=== PATIENT | female | born 1975 | race Caucasian/White ===

== ENCOUNTER 2019-12-23 11:32 | Emergency (ER) | payer OTHER, SELFPAY ==
[2019-12-23 11:41] VITALS: BP 120/76; PULSE 81; RESP 18; TEMP 36.7; O2SAT 99
--- NOTE | 2019-12-23 11:53 | ED.GENADULT ---
HPI - General Adult General Chief complaint: Skin/Abscess/Foreign Body Stated complaint: facial blisters Time Seen by Provider: 12/23/19 11:54 Source: patient Mode of arrival: ambulatory Limitations: no limitations History of Present Illness HPI narrative: 43-year-old female patient presents to the [facility] with complaints of blisters to the face and nose and scalp for the past 3 days. Patient denies any fever, chest pain or shortness of breath. Patient states that it for started off on the left corner of her mouth states there was a little crack in there and has now had some blisters with a little bit of yellow discharge. Patient states she has also had an area on the right side of her nose that has been having a little bit of yellow discharge. Patient states that she also noticed some blister areas to her scalp when she washes her hair. Related Data Home Medications Medication Instructions Recorded Confirmed levothyroxine 06/28/19 naloxone [Narcan] INTRANASAL 12/23/19 pregabalin 12/23/19 Allergies Allergy/AdvReac Type Severity Reaction Status Date / Time Sulfa (Sulfonamide Allergy Mild Rash Verified 06/28/19 12:50 Antibiotics) Review of Systems Review of Systems: Narrative: CONSTITUTIONAL: Denies fever, chills, or sweats. EYES: Denies visual changes, redness, or discharge. ENT: Denies rhinorrhea, congestion, sore throat, or otalgia. CARDIOVASCULAR: Denies chest pain, palpitations, or edema. RESPIRATORY: Denies cough or dyspnea. GASTROINTESTINAL: Denies abdominal pain, nausea, vomiting, or diarrhea. GENITOURINARY: Denies dysuria or hematuria. SKIN: Denies rash or itching. Positive blistering rash to face and scalp for the past 3 days MUSCULOSKELETAL: Denies back pain, joint pain, or myalgia. NEUROLOGIC: Denies headache, numbness, or weakness. PSYCHIATRIC: Denies anxiety or depression. PMFSH Social History Social History Gender identity (if verbalized by the patient): Female Comments At the time of my signature I agree with nursing past medical history, surgical, social, and family history. There is no relevant family history pertinent to the presenting complaint. Exam Narrative: Exam Narrative: GENERAL: Well-appearing, well-nourished, and in no acute distress. HEAD: Normocephalic, atraumatic. EYES: PERRLA and EOMI. ENT: Nares clear, no rhinorrhea or epistaxis. Mucous membranes moist. NECK: Supple. No lymphadenopathy CHEST: Clear to auscultation. No respiratory distress. HEART: Regular rate and rhythm. No murmur heard. Normal peripheral pulses. ABDOMEN: Soft, nontender, nondistended, normal active bowel sounds. EXTREMITIES: Normal range of motion. No edema. SKIN: Warm, dry, no rash. Patient appears to have a bullous-like rash noted to the left corner of the mouth as well as the right side of the nose. No active discharge at this time. Does appear to be some scaly yellowish dry. There is also some small areas noted on the scalp on exam. NEURO: No focal deficits. Alert and oriented x3. Course Vital Signs Vital signs: Vital Signs Temperature 36.7 C 12/23/19 11:41 Pulse Rate 81 12/23/19 11:41 Respiratory Rate 18 12/23/19 11:41 Blood Pressure 120/76 12/23/19 11:41 Pulse Oximetry 99 12/23/19 11:41 Temperature 36.7 C 12/23/19 11:41 Pulse Rate 81 12/23/19 11:41 Respiratory Rate 18 12/23/19 11:41 Blood Pressure 120/76 12/23/19 11:41 Pulse Oximetry 99 12/23/19 11:41 Vital signs reviewed. Medical Decision Making Differential Diagnosis Differential Diagnosis: Differential diagnosis: Contact dermatitis, poison keith, poison sumac, psoriasis, eczema, allergic reaction, drug reaction, scabies, tinea syphilis, lung disease, viral exanthema, pityriasis, erythema multiforme. Discussed with patient this does appear to be some type of impetigo or possibly a staph infection. Discussed with her that we will go ahead an
== END 2019-12-23 12:08 | disposition home or self-care (01) ==
PROVIDERS: Emergency Provider Nurse Practitioner Family; PCP Physician Assistant
DX: L01.00 Impetigo, unspecified (principal); B95.8 Unspecified staphylococcus as the cause of diseases classified elsewhere
CPT/HCPCS: 99213; G0463

== ENCOUNTER 2020-01-13 12:12 | Emergency (ER) | payer OTHER, SELFPAY ==
[2020-01-13 12:22] VITALS: BP 110/71; PULSE 78; RESP 16; TEMP 36.8; O2SAT 99
--- NOTE | 2020-01-13 12:43 | ED.GENADULT ---
HPI - General Adult General Chief complaint: Skin/Abscess/Foreign Body Stated complaint: possible infwction on foot Time Seen by Provider: 01/13/20 12:43 Source: patient and RN notes reviewed Mode of arrival: ambulatory Limitations: no limitations History of Present Illness HPI narrative: 44-year-old female presents with complaints of drainage, redness, warmth, tenderness, and swelling to RT 3rd dorsal toe for the past 4 days. Rupinder says she believes she had athletes foot and was using Lotrimin cream and then wore shoes without socks and developed a wound to RT 3rd toe. Increase redness and warmth over the past 24 hours. Neosporin without relief. Increase radiation of tenderness, redness, and swelling into RT foot. No exacerbating factors per Rupinder. Denies calf pain. Open areas with some drainage. Denies fever or chills. Denies nausea, vomiting, and abdominal pain. Tolerating po intake well. LMP, 4 mos ago, pre-menopausal. The patient reports she have not been diagnosed with COVID-19. The patient reports she is not waiting for the results of a COVID-19 lab test. The patient reports she do not have fever, chills, weakness, or fatigue. The patient reports she do not have a new or worsening cough or shortness of breath. Denies chest pain. The patient reports she do not have any rhinorrhea, congestion, sore throat, and diarrhea. Denies recent traveling. Denies concerns for COVID-19 or exposures been home with limited outdoor exposure except for essential household needs and return home. At this time, patient is not suspected of having COVID-19. Some parts of this dictation were generated by voice recognition software and may contain typographical and/or grammatical inaccuracies. Related Data Home Medications Medication Instructions Recorded Confirmed levothyroxine 01/13/20 pregabalin [Lyrica] 150 mg PO TID 01/13/20 01/13/20 Allergies Allergy/AdvReac Type Severity Reaction Status Date / Time Sulfa (Sulfonamide Allergy Mild Hives Verified 01/13/20 12:35 Antibiotics) Review of Systems Review of Systems: Narrative: CONSTITUTIONAL: Denies fever, chills, sweats. EYES: Denies visual changes, redness, discharge. ENT: Denies rhinorrhea, congestion, sore throat, otalgia. CARDIOVASCULAR: Denies chest pain, palpitations, edema. RESPIRATORY: Denies dyspnea, wheezing, cough. GASTROINTESTINAL: Denies abdominal pain, nausea, vomiting, diarrhea. GENITOURINARY: Denies dysuria, hematuria, abnormal discharge. SKIN: Complaints of drainage, redness, warmth, tenderness, and swelling to RT 3rd dorsal toe and foot. MUSCULOSKELETAL: Denies acute back pain, joint pain, or myalgia. NEUROLOGIC: Denies numbness or focal weakness. PSYCHIATRIC: Denies anxiety or depression. All systems reviewed & are unremarkable except as noted in HPI and below. [facility] Past Medical History Medical History (Updated 01/14/20 @ 00:00 by Tiana Merchant) Fibromyalgia Hypothyroidism Surgical History Surgical History (Updated 01/13/20 @ 13:01 by SERENE Shaw) History of cholecystectomy History of thyroidectomy History of tubal ligation Family History Family History (Updated 01/13/20 @ 13:02 by SERENE Shaw) Father Hypertension Mother Alive and well Social History Social History (Updated 01/13/20 @ 13:03 by SERENE Shaw) Smoking packs per day: 1 Smoking cigarettes per day: 20.0 Years smoked: 15 Smoking pack-years: 15.00 Smoking status: Current every day smoker Alcohol intake: current Substance use: never Living arrangements: with family Occupation/Education: unemployed Gender identity (if verbalized by the patient): Female Comments At time of signature, agree with nurse past medical, surgical, social, and family history. There is no relevant family history pertinent to the presenting complaint. Exam Narrative: Exam Narrative: GENERAL: This is a well-nourished
--- NOTE | 2020-01-13 13:05 | PC.NURSE ---
1303- Abx oint, and baindaid applied.
== END 2020-01-13 13:10 | disposition home or self-care (01) ==
PROVIDERS: Emergency Provider Nurse Practitioner Family; PCP Physician Assistant
DX: L03.031 Cellulitis of right toe (principal); F17.210 Nicotine dependence, cigarettes, uncomplicated
CPT/HCPCS: 87070; 87147; 87186; 87205; 99213; G0463

== ENCOUNTER 2020-02-24 16:25 | Outpatient (CLI) | payer OTHER, SELFPAY ==
[2020-02-24 17:52] LABS: Basophils Absolute Auto 0.1 K/mm3 (0.0-0.1); Basophils Percent Auto 0.9 % (0.2-1.2); Eosinophils Absolute Auto 0.4 K/mm3 (0-0.3); Eosinophils Percent Auto 6.6 % (0-4.4); Hematocrit 39.5 % (37.0-47.0); Hemoglobin 12.5 g/dL (12.0-15.0); Immature Granulocyte Absolute 0.01 K/mm3 (0.00-0.031); Immature Granulocyte Percent A 0.2 % (0-0.5); Lymphocytes Absolute Auto 2.02 K/mm3 (0.9-3.2); Lymphocytes Percent Auto 38.3 % (18.3-44.2); Mean Corpuscular HGB Conc 31.6 g/dl (32-36); Mean Corpuscular Hemoglobin 28.9 pg (26-34); Mean Corpuscular Volume 91.4 fl (80-100); Mean Platelet Volume 10.1 fl (7.4-10.4); Monocytes Absolute Auto 0.4 K/mm3 (0.1-0.6); Monocytes Percent Auto 7.8 % (2.6-8.5); Neutrophils Absolute Auto 2.4 K/mm3 (1.3-6.7); Neutrophils Percent Auto 46.2 % (45.5-73.1); Platelet Count Result 293 k/mm3 (150-375); Red Blood Count 4.32 M/mm3 (4.2-5.4); Red Cell Distribution Width 13.9 % (11.5-14.5); White Blood Count 5.3 K/mm3 (4.5-10.0)
[2020-02-24 18:04] LABS: Alanine Aminotransferase 30 U/L (4-35); Albumin Level 4.1 g/dL (3.5-5.1); Alkaline Phosphatase 97 U/L (38-126); Anion Gap 5 mmol/L (8-16); Aspartate Amino Transferase 37 U/L (14-36); Bilirubin,Total 0.4 mg/dL (0.2-1.3); Blood Urea Nitrogen 11 mg/dL (7-17); Calcium 8.9 mg/dL (8.4-10.2); Carbon Dioxide 33 mmol/L (22-30); Chloride 100 mmol/L (98-107); Estimated Glomerular Filt Rate > 60; Glucose 98 mg/dL (65-105); Potassium 4.1 mmol/L (3.4-5.0); Sodium 138 mmol/L (137-145)
[2020-02-24 18:13] LABS: NT Pro B Type Natriuretic Pept 45 PG/ML (5-100)
[2020-02-24 18:35] LABS: Thyroid Stimulating Hormone 0.176 uIU/mL (0.465-4.680)
== END 2020-02-24 16:26 | disposition home or self-care (01) ==
LOC: ANHLAB 16:28
PROVIDERS: PCP Physician Assistant; Visit Provider Physician Assistant
DX: R60.0 Localized edema (principal)
CPT/HCPCS: 36415; 80053; 83880; 84443; 85025

== ENCOUNTER 2020-08-14 13:08 | Emergency (ER) | payer OTHER, SELFPAY ==
--- NOTE | ~2020-08-14 | XR_ITS ---
XR chest 2V DATE: 08/14/2020 14:34 INDICATION: Generalized swelling. Rash. Back pain. TECHNIQUE: PA and lateral views COMPARISON: 06/28/2019 2 view chest FINDINGS: Normal heart size. No hilar or mediastinal enlargement. No pulmonary infiltrate or consolidation, pleural effusion or pulmonary vascular congestion or pneumo thorax. Included skeletal structures are unremarkable. Status post cholecystectomy. IMPRESSION: No active cardiopulmonary disease Reviewed, dictated and finalized at location [facility]. [facility]
[2020-08-14 13:41] VITALS: BP 118/63; PULSE 111; RESP 24; TEMP 36.8; O2SAT 100
--- NOTE | 2020-08-14 13:57 | ECG_ITS ---
Measurements Intervals [place] Rate: 77 P: 26 PA: 170 QRS: 7 QRSD: 93 T: -2 QT: 359 QTc: 407 Interpretive Statements SINUS RHYTHM EARLY PRECORDIAL R/S TRANSITION VOLTAGE CRITERIA FOR LVH BORDERLINE ST-T WAVE ABNORMALITY- ANT/INF LEADS BASELINE ARTIFACT- I, II, AVR, AVL, AVF BORDERLINE ECG Electronically Signed On 08-14-2020 16:49:47 NURSING TECHN by Jimmy Stevenson D.O.
[2020-08-14 14:15] LABS: Basophils Absolute Auto 0.1 K/mm3 (0.0-0.1); Basophils Percent Auto 0.7 % (0.2-1.2); Eosinophils Absolute Auto 0.2 K/mm3 (0-0.3); Hematocrit 35.6 % (37.0-47.0); Hemoglobin 11.2 g/dL (12.0-15.0); Immature Granulocyte Absolute 0.05 K/mm3 (0.00-0.031); Immature Granulocyte Percent A 0.7 % (0-0.5); Lymphocytes Absolute Auto 2.05 K/mm3 (0.9-3.2); Lymphocytes Percent Auto 29.3 % (18.3-44.2); Mean Corpuscular HGB Conc 31.5 g/dl (32-36); Mean Corpuscular Hemoglobin 28.3 pg (26-34); Mean Corpuscular Volume 89.9 fl (80-100); Monocytes Absolute Auto 0.4 K/mm3 (0.1-0.6); Neutrophils Absolute Auto 4.3 K/mm3 (1.3-6.7); Neutrophils Percent Auto 61.3 % (45.5-73.1); Platelet Count Result 318 k/mm3 (150-375); Red Blood Count 3.96 M/mm3 (4.2-5.4); Red Cell Distribution Width 14.6 % (11.5-14.5)
[2020-08-14 14:21] LABS: Add Urine Microscopic? NO; Appearance Urine Clear (Clear); Bilirubin Urine Negative (Negative); Blood Urine Negative (Negative); Color Urine Colorless (Yellow); Glucose Urine UA Negative (Negative); Ketones Urine Negative (Negative); Leukocyte Esterase Ur Negative LEU/UL (Negative); Nitrate Urine Negative (Negative); Protein Urine Negative (Negative); Urobilinogen Urine Negative mg/dL (<2.0)
[2020-08-14 14:26] LABS: Alanine Aminotransferase 18 U/L (4-35); Albumin Level 4.1 g/dL (3.5-5.1); Alkaline Phosphatase 113 U/L (38-126); Anion Gap 6 mmol/L (8-16); Aspartate Amino Transferase 24 U/L (14-36); Bilirubin,Total 0.3 mg/dL (0.2-1.3); Blood Urea Nitrogen 8 mg/dL (7-17); Calcium 9.2 mg/dL (8.4-10.2); Carbon Dioxide 32 mmol/L (22-30); Chloride 105 mmol/L (98-107); Estimated CRCL calculation 76 ml/min; Estimated Glomerular Filt Rate > 60; Glucose 123 mg/dL (65-105); Potassium 3.8 mmol/L (3.4-5.0); Sodium 143 mmol/L (137-145)
[2020-08-14 14:28] LABS: Specific Grav Ur 1.004 (1.001-1.035)
[2020-08-14 15:19] LABS: NT Pro B Type Natriuretic Pept 178 PG/ML (5-100)
--- NOTE | 2020-08-14 15:58 | ED.GENADULT ---
HPI - General Adult General Chief complaint: Unspecified Stated complaint: swollen from head to toe , onset couple of months Time Seen by Provider: 08/14/20 14:52 Source: patient Mode of arrival: ambulatory Limitations: no limitations History of Present Illness HPI narrative: Patient is 44 years old white female presents with gaining weight and the possible edema all over. Been going for the last 2 months. Patient denies any pain, shortness of breath, fever, chills, nausea, vomiting. History of thyroidectomy and allergy. Also history of fibromyalgia. Patient also reports some skin rash in the vaginal area recently. Related Data Home Medications Medication Instructions Recorded Confirmed pregabalin [Lyrica] 150 mg PO TID 01/13/20 01/13/20 duloxetine mg PO 08/14/20 levothyroxine 08/14/20 Allergies Allergy/AdvReac Type Severity Reaction Status Date / Time Sulfa (Sulfonamide Allergy Mild Hives Verified 08/14/20 13:58 Antibiotics) Review of Systems Review of Systems: Narrative: CONSTITUTIONAL: Denies fever, chills, or sweats. EYES: Denies visual changes, redness, or discharge. ENT: Denies rhinorrhea, congestion, sore throat, or otalgia. CARDIOVASCULAR: Denies chest pain, palpitations, or edema. RESPIRATORY: Denies cough or dyspnea. GASTROINTESTINAL: Denies abdominal pain, nausea, vomiting, or diarrhea. GENITOURINARY: Denies dysuria or hematuria. SKIN: Denies rash or itching. MUSCULOSKELETAL: Denies back pain, joint pain, or myalgia. NEUROLOGIC: Denies headache, numbness, or weakness. PSYCHIATRIC: Denies anxiety or depression. [facility], [facility] Past Medical History Medical History Fibromyalgia Hypothyroidism Surgical History Surgical History History of cholecystectomy History of thyroidectomy History of tubal ligation Family History Family History Father Hypertension Mother Alive and well Social History Social History Smoking packs per day: 1 Smoking cigarettes per day: 20.0 Years smoked: 15 Smoking pack-years: 15.00 Smoking status: Current every day smoker Alcohol intake: current Substance use: never Gender identity (if verbalized by the patient): Female Exam Narrative: Exam Narrative: General appearance: Well-developed, well-nourished Skin: Normal color, 1+ edema lower extremity bilaterally, multiple maculopapular on the vaginal area externally consistent with folliculitis, no discharge, no erythema, no tenderness Head: Normocephalic, nontraumatic Eyes: Clear conjunctiva, puffiness of the eyelids ENT: Oropharynx normal, ears normal, nose normal, ulceration at the right corner of the mouth Neck: Supple, nontender Chest and respiratory: Airway patent, no respiratory distress, no accessory muscle use Heart: Regular rate/rhythm Abdomen: Soft, nontender, no organomegaly, quiet bowel sounds Vascular: Normal peripheral pulses, normal capillary refill. Musculoskeletal: Normal range of motion, nontender back Neurologic: Alert and oriented ?3, [employer] is normal as tested, no gross motor deficit Course Course Emergency Course: Stable Vital Signs Vital signs: Vital Signs Temperature 36.8 C 08/14/20 13:41 Pulse Rate 111 H 08/14/20 13:41 Respiratory Rate 24 H 08/14/20 13:41 Blood Pressure 118/63 08/14/20 13:41 Pulse Oximetry 100 08/14/20 13:41 Temperature 36.8 C 08/14/20 13:41 Pulse Rate 111 H 08/14/20 13:41 Respiratory Rate 24 H 08/14/20 13:41 Blood Pressure 118/63 08/14/20 13:41 Puls
== END 2020-08-14 16:25 | disposition home or self-care (01) ==
PROVIDERS: Emergency Medicine; Emergency Provider Emergency Medicine; PCP Physician Assistant
DX: E89.0 Postprocedural hypothyroidism (principal); R60.0 Localized edema; K13.0 Diseases of lips; H05.223 Edema of bilateral orbit; M79.7 Fibromyalgia; F17.210 Nicotine dependence, cigarettes, uncomplicated; R94.31 Abnormal electrocardiogram [ECG] [EKG]
CPT/HCPCS: 36415; 71046; 80053; 81003; 81025; 83880; 85025; 93005; 99283

== ENCOUNTER 2020-08-28 06:56 | Emergency (ER) | payer OTHER, SELFPAY ==
[2020-08-28 07:04] VITALS: BP 141/91; PULSE 109; RESP 18; TEMP 36.2; O2SAT 100
--- NOTE | 2020-08-28 07:15 | PC.NURSE ---
patient here with migraine headache. took home meds without relief. assessments documented. patient refused urine test prior to treatment. states she had a tubal ligation in the past.
[2020-08-28] MEDS: METOCLOPRAMIDE HCL INJ 10 MG/2 ML VIAL IV PUSH (07:25)
[2020-08-28] MEDS: KETOROLAC 30 MG/ML VIAL (*BKC) IV PUSH (07:25)
[2020-08-28] MEDS: diphenhydrAMINE HCl INJ 50 MG/ML VIAL 25 MG IV PUSH (07:25)
[2020-08-28] MEDS: LACTATED RINGERS 1,000 ML 999 ML IV CONT ×2 (07:25→08:28)
--- NOTE | 2020-08-28 07:32 | ED.HA ---
HPI - Headache General Chief Complaint: Headache Stated Complaint: migraine since yesterday Time Seen by Provider: 08/28/20 07:00 Source: patient Mode of arrival: ambulatory Limitations: no limitations History of Present Illness HPI Narrative: This patient is a 44 year old female with history of hypothyroidism and migraine headaches who presents for evaluation right frontal headache. This is a typical migraine headache. She describes her pain as throbbing with associated nausea but no vomiting. Her headache started yesterday. She has taken tylenol and percocet without relief of her headache. She rates her pain 8/10 . Light makes her headache worse but she denies blurred vision. She also denies URI symptoms, fever, chills, diarrhea, cough, shortness of breathing or any other complaints. She denies focal deficits. MD elicited complaint: migraine Related Data Home Medications Medication Instructions Recorded Confirmed pregabalin [Lyrica] 150 mg PO TID 01/13/20 01/13/20 duloxetine 60 mg PO DAILY 08/14/20 levothyroxine 112 mcg DAILY 08/28/20 08/28/20 ondansetron HCl 8 mg TID PRN 08/28/20 08/28/20 sumatriptan succinate [Imitrex] 50 mg PO TID PRN 08/28/20 08/28/20 Allergies Allergy/AdvReac Type Severity Reaction Status Date / Time Sulfa (Sulfonamide Allergy Mild Hives Verified 08/28/20 07:18 Antibiotics) Review of Systems Review of Systems: All systems reviewed & are unremarkable except as noted in HPI and below Constitutional: Constitutional: Denies chills and Denies fever(s) Eyes: Eyes: Denies change in vision and Denies photophobia ENT: Denies epistaxis and Denies sore throat Cardiovascular: Cardiovascular: Denies chest pain and Denies rapid heart rate [facility] Past Medical History Medical History Fibromyalgia Hypothyroidism Surgical History Surgical History History of cholecystectomy History of thyroidectomy History of tubal ligation Family History Family History Father Hypertension Mother Alive and well Social History Social History Smoking packs per day: 1 Smoking cigarettes per day: 20.0 Years smoked: 15 Smoking pack-years: 15.00 Smoking status: Current every day smoker Alcohol intake: current Substance use: never Gender identity (if verbalized by the patient): Female Exam Const: General: no acute distress and alert Orientation/consciousness: patient oriented x3 HENMT: Head: normocephalic and atraumatic Face and sinus: face symmetric Mouth: Yes Normal oral and palatal mucosa present, Yes lip normal, Yes oropharynx normal and Yes moist mucous membranes Eyes: Pupils: Equal, round and reactive pupils present EOM: EOMs intact bilaterally Resp: Effort & Inspection: normal respiratory effort and no retractions Auscultation: clear to auscultation bilaterally Cardio: Rate: regular rate Rhythm: regular rhythm Heart sounds: no murmurs GI: GI Palp: Yes Soft to palpation, No Tenderness to palpation present (GI) and No Guarding due to palpation present (GI) Auscultation: normal bowel sounds Skin: General skin exam: normal color Rashes: no rashes Neuro: General: patient oriented x3, moves all extremities and CN's II-XI intact bilaterally Gait exam (Neuro): Normal gait present Psych: Mental Status: mental status grossly normal Affect: normal affect Course Reevaluation(s) Reevaluation #1: Patient states she feels much better and she is ready to go home. Her migraine was a typical migraine. She has no focal deficits that suggest need for imaging. She has no fever or signs of meningitis. Date: 08/28/20 Time: 09:36 Vital Signs Vital signs: Vital Signs Temperature 97.1 F L 08/28/20 07:04 Pulse Rate 109 H 08/28/20 07:04 Respiratory Rate 18 08/28/20 0
[2020-08-28] MEDS: LORazepam INJ (*CRX) 2 MG/ML VIAL 1 MG IV PUSH (08:28)
[2020-08-28] MEDS: methylPREDNISolone SOD SUCC 125 MG VIAL IV PUSH (08:28)
--- NOTE | 2020-08-28 08:50 | PC.NURSE ---
patient ambulated to restroom. states pain now 3 after 2nd medications given.
[2020-08-28 09:45] VITALS: BP 118/75; PULSE 78; RESP 16; O2SAT 100
== END 2020-08-28 09:46 | disposition home or self-care (01) ==
PROVIDERS: Emergency Provider General Practice; PCP Physician Assistant
DX: G43.909 Migraine, unspecified, not intractable, without status migrainosus (principal); M79.7 Fibromyalgia; E89.0 Postprocedural hypothyroidism; F17.210 Nicotine dependence, cigarettes, uncomplicated
CPT/HCPCS: 96361; 96374; 96375; 99284; J1200; J1885; J2060; J2765; J2930; J7120

== ENCOUNTER 2021-03-30 13:12 | Emergency (ER) | payer OTHER, SELFPAY ==
[2021-03-30 13:22] VITALS: BP 114/79; PULSE 104; RESP 18; TEMP 36.7; O2SAT 98
--- NOTE | 2021-03-30 13:51 | ED.FEMALEGU ---
HPI - Female Genitourinary General Chief complaint: Urogenital-Female Stated complaint: UTI Time Seen by Provider: 03/30/21 13:51 Source: patient Mode of arrival: ambulatory Limitations: no limitations History of Present Illness HPI Narrative: Rupinder Kwong is a 45-year-old female with a PMH of high hypothyroidism, fibromyalgia, Imitrex, who comes to the [facility] with complaints of urinary tract infection-pain, feeling cannot empty bladder-started yesterday Related Data Home Medications Medication Instructions Recorded Confirmed duloxetine 60 mg PO DAILY 08/14/20 03/30/21 ondansetron HCl 8 mg PO TID PRN 08/28/20 03/30/21 sumatriptan succinate [Imitrex] 50 mg PO TID PRN 08/28/20 03/30/21 ergocalciferol (vitamin D2) 1,250 mcg PO DAILY 03/30/21 03/30/21 ferrous sulfate [FeroSul] 325 mg PO DAILY 03/30/21 03/30/21 pregabalin 200 mg PO DAILY 03/30/21 03/30/21 thyroid (pork) [[place] Thyroid] 90 mg PO DAILY 03/30/21 03/30/21 tramadol 50 mg PO DAILY 03/30/21 03/30/21 Allergies Allergy/AdvReac Type Severity Reaction Status Date / Time Sulfa (Sulfonamide Allergy Mild Hives Verified 03/30/21 13:51 Antibiotics) Review of Systems Review of Systems: CONSTITUTIONAL: Denies fever, chills, sweats. EYES: Denies visual changes, redness, discharge. ENT: Denies rhinorrhea, congestion, sore throat, otalgia. CARDIOVASCULAR: Denies chest pain, palpitations, edema. RESPIRATORY: Denies dyspnea, wheezing, cough GASTROINTESTINAL: Denies abdominal pain, nausea, vomiting, diarrhea. GENITOURINARY: Has dysuria, hematuria, abnormal discharge SKIN: Denies rash or itching. NEUROLOGIC: Denies numbness, or focal weakness. PSYCHIATRIC: Denies anxiety or depression. [facility] Past Medical History Medical History Fibromyalgia Hypothyroidism Surgical History Surgical History History of cholecystectomy History of thyroidectomy History of tubal ligation Family History Family History Father Hypertension Mother Alive and well Social History Social History Smoking packs per day: 1 Smoking cigarettes per day: 20.0 Years smoked: 15 Smoking pack-years: 15.00 Smoking status: Current every day smoker Alcohol intake: current Substance use: never Gender identity (if verbalized by the patient): Female Comments At time of signature, I agree with nursing past medical, surgical, social and family history. There is no relevant family history pertinent to the presenting complaint. Exam Narrative: GENERAL: This is a well-nourished, well-developed patient, in mild distress. HEAD: normocephalic, atraumatic. EYES: Sclera clear/white. Vision is grossly intact. EARS: External ears normal, . Hearing grossly intact. NOSE: External nose normal without nasal discharge, nares without redness, no rhinorrhea. THROAT: Mucous membranes moist, NECK: Neck supple, non-tender CARDIOVASCULAR: Regular rate and rhythm without murmurs, gallops, or rubs. RESPIRATORY: Clear to auscultation. Breath sounds equal bilaterally. No wheezes, rales, or rhonchi. GASTROINTESTINAL: Abdomen soft, SKIN: warm, intact with no suspicious lesions or rash, good texture and turgor. NEURO: awake, alert, and oriented to person, place and time. There were no obvious focal neurologic abnormalities. Steady gait EXTREMITIES: Normal range of motion. BACK: Nontender without deformity Course Course Emergency Course: Patient, developed dysuria yesterday morning Discussed prevention and started on Keflex 500 mg 1 twice daily and Pyridium Vital Signs Vital signs: Vital Signs Temperature 98.0 F 03/30/21 13:22 Pulse Rate 104 H 03/30/21 13:22 Respiratory Rate 18 03/30/21 13:22 Blood Pressure 114/79 03/30/21 13:22 Pulse Oximetry 98 03/30
== END 2021-03-30 14:06 | disposition home or self-care (01) ==
PROVIDERS: Emergency Provider Nurse Practitioner
DX: N30.01 Acute cystitis with hematuria (principal); E03.9 Hypothyroidism, unspecified; F17.210 Nicotine dependence, cigarettes, uncomplicated
CPT/HCPCS: 81003; 87077; 87086; 87088; 87186; 99213; G0463

== ENCOUNTER 2022-11-25 01:58 | Day surgery (SDC) | payer OTHER, SELFPAY ==
[2022-11-20 15:18] VITALS: BMI 31.4
--- NOTE | 2022-11-20 15:41 | PC.NURSE ---
Report to the Outpatient Waiting Room, entrance under the green pavilion located off [facility], at time_0800 _on date 11/25/22_. Planned Procedure Time: _1000 . Time changes happen often and if your time is changed the preop area will call you the afternoon before. - You and your visitor will be asked to self-screen and do not enter if you have any COVID symptoms. - A mask is optional within the hospital at this time. Patients may have clear liquids (water, carbonated beverages, clear teas, apple juice) until 3 hours prior to surgery with a maximum of 20 ounces. - No food from midnight until time of surgery Take the following medications with a SIP of water the morning of surgery: ARMOUR; PREGABALIN, DULOXETINE; IMITREX PRN; TRAMADOL DO NOT STOP ANY OF YOUR OTHER PRESCRIPTION MEDICATIONS PRIOR TO SURGERY ?EXCEPT THE FOLLOWING Medications to discontinue per physician NONE Date to take last dose__N/A Please no make-up, nail english, hairspray, perfume, deodorant, or body powder the day of surgery. No jewelry (including any body piercings) or valuables the day of surgery, leave them at home. Please take a shower or bath the night before, or the morning of, surgery with an antibacterial soap. Wear comfortable, loose fitting clothing. - Jewelry must be removed prior to entering the operating room. Rings and piercings that are not removed may be cut off. - The hospital will not accept responsibility for valuables. - Please leave all valuables, including medications, at home the day of surgery. If you are going home after surgery, a licensed inventory associate and driver must drive you home. - NO public transportation without another adult if you receive anesthesia. - We recommend that an adult stay with you for 24 hours following discharge. - We also recommend that you do not drive, make important decision, drink alcoholic beverages, or take any drugs that were not prescribed by your health care provider for at least 24 hours after your discharge time. Follow any additional instructions given to you from your surgeon. If you or anyone in your household have experienced Covid symptoms in the past week, please notify your surgeon or the nurse liaison at the phone number below for possible testing. Telephone instructions given to __[email or web address] and asked if any additional questions and then verbalized understanding. Patient advised to call surgeon office or pre surgery nurse liaison [phone] if any additional questions.
[2022-11-25] MEDS: ACETAMINOPHEN 500 MG TABLET 1000 MG PO (08:20)
--- NOTE | 2022-11-25 08:41 | WPDANESEPPF ---
Anes - Initial Pre Proc Eval Procedure: Operation Date: 11/25/22 10:00 Proposed Procedures p Hysteroscopy with Germania Endometrial Ablation - Torito Power MD <Roldan Lima MD - Last Filed: 12/09/22 08:56> Date/Time: 11/25/22 08:41 <Roldan Lima MD - Last Filed: 12/09/22 08:56> Surgeon: Torito Power MD <Roldan Lima MD - Last Filed: 12/09/22 08:56> Pre Op Diagnosis: menorrhagia <Roldan Lima MD - Last Filed: 12/09/22 08:56> Patient Data Age: 46 Gender: F Height: 1.57 m Weight: 80.8 kg <Roldan Lima MD - Last Filed: 12/09/22 08:56> Allergies Allergy/AdvReac Type Severity Reaction Status Date / Time Sulfa (Sulfonamide Allergy Mild Hives Verified 11/25/22 08:15 Antibiotics) <Roldan Lima MD - Last Filed: 12/09/22 08:56> Home Medications Medication Instructions Recorded Confirmed Type duloxetine 60 mg capsule,delayed 60 mg PO DAILY 08/14/20 11/20/22 History release sumatriptan succinate 50 mg tablet 50 mg PO TID PRN Headache 08/28/20 11/20/22 History (Imitrex) pregabalin 200 mg capsule 200 mg PO DAILY 03/30/21 11/20/22 History thyroid (pork) 90 mg tablet 90 mg PO DAILY 03/30/21 11/20/22 History ([place] Thyroid) tramadol 50 mg tablet 50 mg PO DAILY 03/30/21 11/20/22 History <Roldan Lima MD - Last Filed: 12/09/22 08:56> Patient hx anesthesia problems: none <Elias Sahu DO - Last Filed: 11/25/22 08:48> Family hx anesthesia problems: none <Elias Sahu DO - Last Filed: 11/25/22 08:48> Results Review: All pre-operative results and documents have been reviewed as part of the pre-operative evaluation. <Roldan Lima MD - Last Filed: 12/09/22 08:56> [facility] Past Medical History Medical History: Medical History Fibromyalgia Hypothyroidism <Roldan Lima MD - Last Filed: 12/09/22 08:56> Surgical History Surgical History: Surgical History History of cholecystectomy History of thyroidectomy History of tubal ligation <Roldan Lima MD - Last Filed: 12/09/22 08:56> Family History Family History: Family History Father Hypertension Mother Alive and well <Roldan Lima MD - Last Filed: 12/09/22 08:56> Social History Social History: Social History Smoking packs per day: 1 Smoking cigarettes per day: 20.0 Years smoked: 15 Smoking pack-years: 15.00 Smoking status: Current every day smoker Tobacco type: cigarettes Alcohol intake: never Substance use: never Substance use type: does not use Living arrangements: with family Occupation/Education: unemployed Gender identity (if verbalized by the patient): Female Spiritual care concerns: No <Roldan Lima MD - Last Filed: 12/09/22 08:56> Anes - Eval Final PreProcedure Day of Procedure 11/25/22 08:41 <Roldan Lima MD - Last Filed: 12/09/22 08:56> Patient weight: obese <Elias Sahu DO - Last Filed: 11/25/22 08:48> Heart: regular rate and rhythm <Elias Sahu DO - Last Filed: 11/25/22 08:48> Lungs: clear to auscultation <Elias Sahu DO - Last Filed: 11/25/22 08:48> Airway: Mallampati scale class II <Elias Sahu DO - Last Filed: 11/25/22 08:48> Neurological: alert and oriented <Elias Sahu DO - Last Filed: 11/25/22 08:48> Last oral intake: >/= 8 hours <Elias Sahu DO - Last Filed: 11/25/22 08:48> ASA classification: III <Elias Sahu DO - Last Filed: 11/25/22 08:48> Emergent: no <Elias Sahu DO - Last Filed: 11/25/22 08:48> Anesthetic plan: proceed <Elias Sahu DO - Last Filed: 11/25
[2022-11-25 09:10] VITALS: BP 113/84; PULSE 95; RESP 16; TEMP 36.9; O2SAT 98
[2022-11-25] MEDS: LACTATED RINGERS 1,000 ML 30 ML IV CONT (09:12)
--- NOTE | 2022-11-25 10:22 | WPDHPUPDATE1 ---
History and Physical Update Update Date/Time: 11/25/22 10:22 History and Physical has been reviewed, including an updated exam of the patient. There are NO changes in the patient's condition. Risks, benefits, and alternatives have been discussed and questions answered. Patient agrees to proceed with procedure.
--- NOTE | 2022-11-25 10:25 | PM.IMHP ---
H&P: HPI History of Present Illness Date/Time: 11/25/22 10:25 Chief Complaint: Menorrhagia Narrative: patient is a 46-year-old female who presented with severe menorrhagia. We have agreed to perform endometrial ablation. She understands that there are risks to the procedure. She understands that injuries may occur and that injuries may result in hospitalization, more surgery, and severe illness. She understands risk of hemorrhage and infection. She denies any nausea, vomiting, fever, chills. She denies any chest pain shortness of breath Review of Systems Review of Systems: All systems reviewed & are unremarkable except as noted in HPI and below Constitutional: Constitutional: Denies chills, Denies fatigue, Denies fever(s) and Denies weakness Eyes: Eyes: Denies blurry vision, Denies change in vision, Denies loss of peripheral vision, Denies loss of vision, Denies other visual disturbances and Denies eye pain ENT: Denies vertigo, Denies dizziness, Denies hearing loss, Denies mouth pain, Denies nasal obstruction, Denies neck mass and Denies neck pain Cardiovascular: Cardiovascular: Denies chest pain, Denies diaphoresis, Denies syncope, Denies leg edema and Denies dyspnea Respiratory: Respiratory: Denies chest congestion, Denies cough, Denies hemoptysis, Denies dyspnea and Denies wheezing Gastrointestinal: Gastrointestinal: Denies abdominal pain, Denies constipation, Denies diarrhea, Denies nausea and Denies vomiting Genitourinary: Genitourinary: Denies hematuria, Denies change in libido, Denies nocturia, Denies genital lesions, Denies flank pain and Denies urinary urgency Musculoskeletal: Musculoskeletal: Denies abnormal gait, Denies back pain, Denies myalgias, Denies arthralgias, Denies joint swelling, Denies muscle weakness and Denies neck pain Integumentary/Breasts: Skin/Breast: Denies swelling, Denies breast pain, Denies breast mass, Denies dry skin, Denies nipple discharge, Denies unusual bruising and Denies jaundice Neurologic: Denies Neuro-related abnormal movements, Denies Abnormal speech present, Denies abnormal gait, Denies behavioral changes, Denies confusion, Denies vertigo, Denies dizziness, Denies syncope, Denies loss of vision, Denies memory loss, Denies convulsions and Denies weakness Psychiatric: Psychiatric: Denies abnormal sleep pattern, Denies behavioral changes, Denies change in libido, Denies confusion, Denies depression, Denies anhedonia and Denies memory loss Endocrine: Endocrine: Reports no additional endocrine complaints, Denies change in libido and Denies fatigue Hematologic/Lymphatic: Hematologic/Lymphatic: Reports no additional hematologic/lymphatic complaints Allergic/Immunologic: Allergic/Immunologic: Reports no additional allergic/immunologic complaints and Denies wheezing PMFSH Past Medical History Medical History Fibromyalgia Hypothyroidism Surgical History Surgical History History of cholecystectomy History of thyroidectomy History of tubal ligation Family History Family History Father Hypertension Mother Alive and well Social History Social History Smoking packs per day: 1 Smoking cigarettes per day: 20.0 Years smoked: 15 Smoking pack-years: 15.00 Smoking status: Current every day smoker Tobacco type: cigarettes Alcohol intake: never Substance use: never Substance use type: does not use Living arrangements: with family Occupation/Education: unemployed Gender identity (if verbalized by the patient): Female Spiritual care concerns: No Meds Home Medications and Allergies Home Medications Medication Instructions Recorded Confirmed Type duloxetine 60 mg capsule,delayed 60 mg PO DAILY 08/14/20 11/20/22 History release [place]
[2022-11-25 11:15] VITALS: BP 130/85; PULSE 86; RESP 14; O2SAT 100
--- NOTE | 2022-11-25 11:15 | W.PM.PROC2 ---
Procedure Note - Detailed Date of Procedure 11/25/22 Pre-op Diagnosis menorrhagia Post-op Diagnosis Same Procedure Performed endometrial ablation with hysteroscopy d&c Surgeon Torito Power MD Anesthesia MAC Indications Severe menorrhagia Findings Normal vulva vagina and cervix. Normal endometrium. Description of Procedure The patient was taken to the operating room. She was prepped and draped in the dorsal lithotomy position after induction of mac anesthesia. A speculum was placed in the vagina. Cervix grasped with a tenaculum. The cervix was dilated to about 1 cm. The hysteroscope was inserted. The above findings were noted. Endometrial curettage was performed with a medium-size curette. All surfaces of the endometrium were affected by the curettage. The specimens were collected and sent to pathology. Measurements were taken of the uterus and cervix. The uterine length was then entered into the hand piece of the Germania device. The device was inserted into the intrauterine cavity. The array of the device was expanded. The balloon cuff was inflated. A good seal was achieved. The energy and safety cycles were initiated and completed. The array was collapsed and the instrument was withdrawn after deflating the balloon cuff. Hysteroscope was reinserted. Above findings were noted. The hysteroscope was removed. The patient tolerated the procedure well. The speculum and tenaculum were removed. She was taken to recovery in stable condition. Sponge lap and needle counts were correct x2. Estimated Blood Loss 15 Pathology Yes Complications No immediate complications Condition Stable Disposition Same day
[2022-11-25 11:45] VITALS: BP 140/82; PULSE 67
[2022-11-25] MEDS: oxyCODONE HCL (*CRX) 5 MG TAB IR PO (12:11)
[2022-11-25 12:15] VITALS: BP 132/82; PULSE 79
[2022-11-25 12:45] VITALS: BP 118/80; PULSE 83
== END 2022-11-25 13:04 | disposition home or self-care (01) ==
PROVIDERS: PCP Physician Assistant; Visit Provider Obstetrics & Gynecology
PROC: 0U5B8ZZ Destruction of Endometrium, Via Natural or Artificial Opening Endoscopic (ICD-10-PCS; CPT 58563; principal; 2022-11-25 10:00)
DX: N92.0 Excessive and frequent menstruation with regular cycle (principal); E03.9 Hypothyroidism, unspecified; M79.7 Fibromyalgia; F17.210 Nicotine dependence, cigarettes, uncomplicated; E66.9 Obesity, unspecified; Z68.32 Body mass index [BMI] 32.0-32.9, adult
CPT/HCPCS: 58563; 88305; A9270; J1100; J2250; J2405; J2704; J3010; J7030; J7120

== ENCOUNTER 2023-08-10 09:42 | Outpatient (CLI) | payer OTHER, SELFPAY ==
--- NOTE | 2023-08-10 09:53 | ECG_ITS ---
Measurements Intervals [place] Rate: 95 P: 63 MN: 164 QRS: 34 QRSD: 97 T: 33 QT: 330 QTc: 416 Interpretive Statements SINUS RHYTHM CONSIDER INFERIOR INFARCT, AGE INDETERMINATE BORDERLINE ECG COMPARED TO ECG 08/14/2020 15:46:08 NO SIGNIFICANT CHANGES Electronically Signed On 08-10-2023 11:55:00 HEARING SCREEN COORDINATOR by Jimmy Stevenson D.O.
== END 2023-08-10 09:43 | disposition home or self-care (01) ==
LOC: ANHSURGERY 09:45
PROVIDERS: PCP Physician Assistant; Visit Provider Obstetrics & Gynecology
DX: N92.0 Excessive and frequent menstruation with regular cycle (principal); F17.200 Nicotine dependence, unspecified, uncomplicated; Z01.818 Encounter for other preprocedural examination
CPT/HCPCS: 36415; 86850; 86900; 86901; 93005

== ENCOUNTER 2023-08-12 02:10 | Day surgery (SDC) | payer OTHER, SELFPAY ==
[2023-07-22 14:38] VITALS: BMI 30.2
--- NOTE | 2023-07-22 15:05 | PC.NURSE ---
Report to the Outpatient Waiting Room, entrance under the green pavilion located off [facility], at 1100 on 07/29/23. Planned Procedure Time: 1300. Time changes happen often and if your time is changed the preop area will call you the afternoon before. - You and your visitor will be asked to self-screen and do not enter if you have any COVID symptoms. - A mask is optional within the hospital at this time. Patients may have clear liquids (water, carbonated beverages, clear teas, apple juice) until 3 hours prior to surgery with a maximum of 20 ounces. - No food from midnight until time of surgery Take the following medications with a SIP of water the morning of surgery: Thyroid, Duloxetine, Pregabalin, Duloxetine, and if needed, Imitrex DO NOT STOP ANY OF YOUR OTHER PRESCRIPTION MEDICATIONS PRIOR TO SURGERY ?EXCEPT THE FOLLOWING Medications to discontinue per physician n/a Date to take last dose n/a Please no make-up, nail arabic, hairspray, perfume, deodorant, or body powder the day of surgery. No jewelry (including any body piercings) or valuables the day of surgery, leave them at home. Please take a shower or bath the night before, or the morning of, surgery with an antibacterial soap. Wear comfortable, loose fitting clothing. - Jewelry must be removed prior to entering the operating room. Rings and piercings that are not removed may be cut off. - The hospital will not accept responsibility for valuables. - Please leave all valuables, including medications, at home the day of surgery. If you are going home after surgery, a licensed van driver must drive you home. - NO public transportation without another adult if you receive anesthesia. - We recommend that an adult stay with you for 24 hours following discharge. - We also recommend that you do not drive, make important decision, drink alcoholic beverages, or take any drugs that were not prescribed by your health care provider for at least 24 hours after your discharge time. Follow any additional instructions given to you from your surgeon. If you or anyone in your household have experienced Covid symptoms in the past week, please notify your surgeon or the nurse liaison at the phone number below for possible testing. Telephone instructions given to patient and asked if any additional questions and then verbalized understanding. Patient advised to call surgeon office or pre surgery nurse liaison [phone] if any additional questions.
--- NOTE | 2023-08-04 09:43 | PC.NURSE ---
Pt states no changes in medications or health history since initial interview. New pre-op instructions reviewed with pt. Pt denies further questions at this time.
--- NOTE | 2023-08-04 09:44 | PC.NURSE ---
Report to the Outpatient Waiting Room, entrance under the green pavilion located off [facility], at time 10:00 on date 08/12/23. Planned Procedure Time: 12:00. Time changes happen often and if your time is changed the preop area will call you the afternoon before. - You and your visitor will be asked to self-screen and do not enter if you have any COVID symptoms. - A mask is optional within the hospital at this time. Patients may have clear liquids (water, carbonated beverages, clear teas, apple juice) until 3 hours prior to surgery (9:00) with a maximum of 20 ounces. - No food from midnight until time of surgery Take the following medications with a SIP of water the morning of surgery: DULOXETINE, PREGABALIN, THYROID DO NOT STOP ANY OF YOUR OTHER PRESCRIPTION MEDICATIONS PRIOR TO SURGERY ?EXCEPT THE FOLLOWING Medications to discontinue per physician: N/A Date to take last dose: N/A Please no make-up, nail azeri, hairspray, perfume, deodorant, or body powder the day of surgery. No jewelry (including any body piercings) or valuables the day of surgery, leave them at home. Please take a shower or bath the night before, or the morning of, surgery with an antibacterial soap. Wear comfortable, loose fitting clothing. - Jewelry must be removed prior to entering the operating room. Rings and piercings that are not removed may be cut off. - The hospital will not accept responsibility for valuables. - Please leave all valuables, including medications, at home the day of surgery. If you are going home after surgery, a licensed diesel truck driver must drive you home. - NO public transportation without another adult if you receive anesthesia. - We recommend that an adult stay with you for 24 hours following discharge. - We also recommend that you do not drive, make important decision, drink alcoholic beverages, or take any drugs that were not prescribed by your health care provider for at least 24 hours after your discharge time. Follow any additional instructions given to you from your surgeon. If you or anyone in your household have experienced Covid symptoms in the past week, please notify your surgeon or the nurse liaison at the phone number below for possible testing. Telephone instructions given to PT - EDMUND ALFRED and asked if any additional questions and then verbalized understanding. Patient advised to call surgeon office or pre surgery nurse liaison [phone] if any additional questions.
[2023-08-12] VITALS (10 sets, daily range): BP systolic 105–145; BP diastolic 67–89; PULSE 67–94; RESP 14–26; TEMP 36.6–37.4; O2SAT 97–100
[2023-08-12] MEDS: ACETAMINOPHEN 500 MG TABLET 1000 MG PO (10:15)
[2023-08-12] MEDS: LACTATED RINGERS 1,000 ML 30 ML IV CONT ×2 (10:22→13:20)
--- NOTE | 2023-08-12 10:28 | P.PNAN_ITS ---
Anes - Initial Pre Proc Eval Procedure: Operation Date: 08/12/23 11:30 Proposed Procedures p Robotic Assisted Hysterectomy with Bilateral Salpingo Oophorectomy - Torito Power MD Date/Time: 08/12/23 10:28 Surgeon: Torito Power MD Pre Op Diagnosis: menorrhagia Patient Data Age: 47 Gender: F Height: 1.57 m Weight: 74.84 kg Allergies Allergy/AdvReac Type Severity Reaction Status Date / Time Sulfa (Sulfonamide Allergy Mild Hives Verified 08/12/23 10:06 Antibiotics) Home Medications Medication Instructions Recorded Confirmed Type duloxetine 60 mg capsule,delayed 60 mg PO DAILY 08/14/20 08/12/23 History release sumatriptan succinate 50 mg tablet 50 mg PO TID PRN Headache 08/28/20 08/12/23 History (Imitrex) pregabalin 200 mg capsule 200 mg PO DAILY 03/30/21 08/12/23 History thyroid (pork) 90 mg tablet 90 mg PO DAILY 03/30/21 08/12/23 History ([place] Thyroid) Patient hx anesthesia problems: none Family hx anesthesia problems: none Results Review: All pre-operative results and documents have been reviewed as part of the pre- operative evaluation. PMFSH Past Medical History Medical History Fibromyalgia Hypothyroidism Surgical History Surgical History History of cholecystectomy History of thyroidectomy History of tubal ligation Family History Family History Father Hypertension Mother Alive and well Social History Social History Smoking packs per day: 1 Smoking cigarettes per day: 20.0 Years smoked: 30 Smoking pack-years: 30.00 Smoking status: Current every day smoker Tobacco type: cigarettes Second hand tobacco smoke exposure: Yes Alcohol intake: current Alcohol use details: 2x/yr Substance use: never Substance use type: does not use Living arrangements: with family Occupation/Education: unemployed Gender identity (if verbalized by the patient): Female Spiritual care concerns: No Anes - Eval Final PreProcedure Day of Procedure 08/12/23 10:28 Patient weight: overweight Heart: regular rate and rhythm Lungs: decreased breath sounds Airway: Mallampati scale class II Neurological: alert and oriented Last oral intake: >/= 8 hours ASA classification: III Emergent: no Anesthetic plan: proceed Anesthesia type and monitoring: general ETT and standard monitoring Results Review: All pre-operative results and documents have been reviewed as part of the pre- operative evaluation. Informed Consent: The patient's anesthetic plan and its attendant risks and benefits were discussed with the patient/family/POA. Questions were solicited and answers provided to the satisfaction of the patient/family/POA.
[2023-08-12] MEDS: MIDAZOLAM HCL (*CRX) 2 MG/2 ML VIAL IV PUSH (10:45)
--- NOTE | 2023-08-12 11:12 | WPDHPUPDATE1 ---
History and Physical Update Update Date/Time: 08/12/23 11:12 History and Physical has been reviewed, including an updated exam of the patient. There are NO changes in the patient's condition. Risks, benefits, and alternatives have been discussed and questions answered. Patient agrees to proceed with procedure.
[2023-08-12] MEDS: KETOROLAC 15 MG/ML VIAL (*BKC) IV PUSH ×2 (11:16→14:29)
[2023-08-12] MEDS: ceFAZolin 2 GM/D5W 50 ML 2 GM/50 ML BAG IVPB (11:26)
--- NOTE | 2023-08-12 13:13 | W.PM.PROC2 ---
Procedure Note - Detailed Date of Procedure 08/12/23 Pre-op Diagnosis menorrhagia Post-op Diagnosis Same Procedure Performed Robot assisted Total hysterectomy with bilateral salpingectomy. Surgeon Torito Power MD Anesthesia General Indications heavy vaginal bleeding, pelvic pain Findings enlarged uterus with normal-appearing fallopian tubes and ovaries. Description of Procedure This patient was taken to the operating room. She was prepped and draped in the dorsal lithotomy position after induction of general anesthesia. The uterine manipulator and Elissa cup were placed. This was done with a speculum and tenaculum. The speculum was placed. The cervix was grasped with a tenaculum. The stay sutures were placed at 3 and 9:00 a.m.. The stay sutures of 0 Vicryl were tied to the appropriately Size scope after it was slipped around the cervix.. The tip of the [place] manipulator was placed in the intrauterine cavity. The cup was slid into place around the cervix and into the fornices. It was locked into place. The sutures were then wrapped around the handle and tied under tension. A 8 mm skin incision was made in the left upper quadrant the abdomen. a 5 mm Visiport trocar was inserted into abdominal cavity and pneumoperitoneum was achieved. A 8 mm supraumbilical incision was made and a 8 mm trocar was inserted into the intrauterine cavity under direct visualization of the scope. an 8 mm incision was made in the right upper quadrant of the abdomen and an 8 mm robotic trocar was placed the inter uterine cavity under direct visualization the scope. An 11 mm trocar was inserted in the right upper quadrant of the abdomen rectal is a cystoscope after an incision was made there as well. The robot was docked. Electronic Orientation of the robot was performed. Bilateral ureteral lysis was performed. This was done from the pelvic brim down to the uterine artery. This was done with careful dissection using sharp and blunt dissection.Bilateral salpingo-oophorectomy was performed. The bilateral infundibulopelvic ligaments were cauterized thoroughly and transected after visualization of the ureter passing over the pelvic brim. In stepwise fashion around the ovary the mesosalpinx was cauterized transected. The Fallopian tube tissue/ mesosalpinx was cauterized transected a stepwise fashion medially to the cornua of the uterus. the tube was transected at the cornua and cauterized thoroughly. The bilateral tubes and ovaries were taken out through the large air lock port. Then In a stepwise fashion along the lateral aspects of the uterus the round ligament and broad ligaments were cauterized transected down to the level of the uterine arteries. A bladder flap was created in the bladder was moved distally to the end of the cervix and over the Elissa cup. The bilateral uterine arteries were cauterized and transected. Colpotomy was then performed. In a circumferential fashion the vagina was transected using unipolar cautery. The incision was made down on the Elissa cup. The uterus and cervix were taken out through the vagina. A pneumo occluder was placed in the vagina. The vaginal cuff was closed with a 0 V lock suture in a running fashion. The pelvis was irrigated with copious amounts antibiotic irrigation. The ureters were again examined and found to be intact and flowing freely under the uterine arteries into the bladder. The bladder was intact. It was examined directly. The vagina was irrigated with Betadine solution after removal of the Pneumo occluder. the trocars were removed after the robot was undocked. The skin was closed with subacute or Dermabond. The patient was taken to recovery room. She was stable condition. Sponge lap and needle counts were correct x2. Estimated Blood Loss 125 Urine Output 800 Drains Yes Packing No Pathology Yes Complications No immediate complications Condition Stable Disposition Floor
[2023-08-12] MEDS: fentaNYL CITRATE INJ (*CRX) 100 MCG/2 ML VIAL 25 MCG IV PUSH ×8 (13:37→13:56)
[2023-08-12] MEDS: HYDROmorphone HCL INJ (*CRX) 1 MG/ML SYR IV PUSH ×3 (14:00→14:22)
--- NOTE | 2023-08-12 14:55 | PC.NURSE ---
This patient, Rupinder Kwong, was received from PACU on 08/12/23 at 1455. Patient/family oriented to unit policies and routines
[2023-08-12] MEDS: HYDROcodone/acetaminophen (*CRX) 10-325 MG TABLET 1 TAB PO ×3 (15:31→22:33)
[2023-08-12] MEDS: DEXTROSE 5%/0.45% SOD CHL 1,000 ML 125 ML IV CONT (15:32)
[2023-08-12] MEDS: SIMETHICONE 80 MG TAB.CHEW PO (19:28)
[2023-08-12] MEDS: IBUPROFEN 600 MG TABLET PO (19:29)
[2023-08-13] MEDS: HYDROcodone/acetaminophen (*CRX) 10-325 MG TABLET 1 TAB PO ×2 (01:55→05:03)
[2023-08-13] MEDS: IBUPROFEN 600 MG TABLET PO ×2 (01:58→08:29)
--- NOTE | 2023-08-13 07:51 | WPDANESPN ---
Anes - Prog Note Post-Op Date/Time: 08/13/23 07:51 Cardiovascular status: normal Respiratory status: normal Airway patency: baseline Mental status: baseline Post-Op hydration status: normal Vital Signs: Last Vital Signs Temp 99.1 F 08/12/23 22:36 Pulse 81 08/12/23 22:36 Resp 18 08/12/23 22:36 BP 106/67 08/12/23 22:36 Pulse Ox 100 08/12/23 15:00 O2 Del Method Room Air 08/12/23 14:35 O2 Flow Rate 8 08/12/23 13:50 Pain Score (VAS): 0/10 I/O: Intake & Output 08/12/23 08/12/23 08/13/23 15:59 23:59 07:59 Intake Total 1550 700 500 Output Total 930 260 500 Balance 620 440 0 Post-procedural complaints: none Patient Feedback: Patient satisfied with anesthetic care.
[2023-08-13 08:10] VITALS: BP 125/76; PULSE 87; RESP 18; TEMP 37.6; O2SAT 99
[2023-08-13] MEDS: SIMETHICONE 80 MG TAB.CHEW PO (08:27)
[2023-08-13] MEDS: HYDROcodone/acetaminophen (*CRX) 5-325 MG TABLET 1 TAB PO (08:28)
[2023-08-13] MEDS: DULoxetine HCL 60 MG CAPSULE.DR PO (08:28)
--- NOTE | 2023-08-13 08:58 | PM.GYNPNOP ---
BANK MESSENGER - A/P Postoperative Procedures: Procedures Operation Date: 08/12/23 11:30 Actual Procedure Side Surgeon p Robotic Assisted Hysterectomy with Bilateral Salpingo Oophorectomy Bilateral Torito Power MD Postoperative day: 1 Postoperative status: doing well Postoperative plan: see orders Time Spent With Patient Time: Total time spent is greater than 50% in coordination of care (as documented) at patient's floor/unit and/or counseling patient: Time with patient: less than 15 minutes BANK MESSENGER- PN:Subj Post-Op Subjective Date/time seen: 08/13/23 08:58 Subjective: patient reports feeling better, patient has no complaints and pain is well controlled Exam Const: General: healthy appearing, comfortable and no acute distress Resp: Auscultation: clear to auscultation bilaterally, no rales, no rhonchi and no wheezes Cardio: Rate: regular rate Heart sounds: no click, no murmurs and no rubs GI: Inspection: non-distended Auscultation: normal bowel sounds Extrem: General: normal to inspection, no pedal edema and no calf tenderness BANK MESSENGER - PN: Obj Data Vital Signs Vital Signs: Vital Signs - 24 hr 08/12/23 11:22 08/12/23 13:20 08/12/23 13:35 Temperature 99.0 F 98.1 F Pulse Rate 94 75 80 Respiratory Rate 16 16 26 H Blood Pressure 119/82 129/81 145/89 H Pulse Oximetry 100 100 100 Oxygen Delivery Room Air Simple Face Mask Simple Face Mask Oxygen Flow Rate 8 8 08/12/23 13:50 08/12/23 14:05 08/12/23 14:20 Temperature Pulse Rate 81 73 69 Respiratory Rate 24 H 23 H 14 Blood Pressure 121/87 115/77 118/70 Pulse Oximetry 100 97 100 Oxygen Delivery Simple Face Mask Room Air Room Air Oxygen Flow Rate 8 08/12/23 14:35 08/12/23 15:00 08/12/23 19:10 Temperature 98 F 99.4 F Pulse Rate 67 70 68 Respiratory Rate 14 16 20 Blood Pressure 116/80 105/67 130/83 Pulse Oximetry 99 100 Oxygen Delivery Room Air Oxygen Flow Rate 08/12/23 22:36 Temperature 99.1 F Pulse Rate 81 Respiratory Rate 18 Blood Pressure 106/67 Pulse Oximetry Oxygen Delivery Oxygen Flow Rate Intake/Output Intake/Output: Intake & Output 01/2908/11/23 08/12/23 08/13/23 23:59 23:59 23:59 23:59 Intake Total 2250 500 Output Total 1190 500 Balance 1060 0 Meds/Results Medications: Active Medications Generic Name Dose Route Start Last Admin Trade Name Freq PRN Reason Stop Dose Admin Hydrocodone Bitart/Acetaminophen 1 tab 08/12/23 14:48 08/13/23 08:28 Hydrocodone/Acetaminophen (*Crx) 5-325 Mg Tablet PO 1 tab Q3H PRN Administration Pain Rated 5 or Less Hydrocodone Bitart/Acetaminophen 1 tab 08/12/23 14:48 08/13/23 05:03 Hydrocodone/Acetaminophen (*Crx) 10-325 Mg Tablet PO 1 tab Q3H PRN Administration Pain Rated 6 or Greater Duloxetine HCl 60 mg 08/13/23 09:00 08/13/23 08:28 Duloxetine Hcl 60 Mg Capsule.Dr PO 60 mg DAILY ORTEGA Administration Ibuprofen 600 mg 08/12/23 14:48 08/13/23 08:29 Ibuprofen 600 Mg Tablet PO 600 mg Q6H PRN Administration Cramping Ketorolac Tromethamine 30 mg 08/12/23 14:48 Ketorolac 30 Mg/Ml Vial (*Bkc) IV PUSH 08/17/23 14:47 Q6H PRN Pain Rated 4-6 Naloxone HCl 0.1 mg 08/12/23 14:48 Naloxone Hcl 0.4 Mg/Ml Vial IV PUSH Q2M PRN Respiratory rate less than 10 Ondansetron HCl 4 mg 08/12/23 14:48 Ondansetron Inj 4 Mg/2 Ml Vial IV PUSH Q6H PRN Nausea And Vomiting Pregabalin 200 mg 08/13/23 09:00 Pregabalin (*Crx) 50 Mg Capsule PO DAILY ORTEGA Simethicone 80 mg 08/12/23 17:00 08/13/23 08:27 Simethicone 80 Mg Tab.Chew PO 80 mg TIDWM ORTEGA Administration Sumatriptan Succinate 50 mg 08/12/23 14:48 Sumatriptan Succinate 25 Mg Tablet PO PRN PRN Migraine Headache Thyroid 90 mg 08/13/23 09:00 Thyroid 30 Mg Tablet PO DAILY ORTEGA
== END 2023-08-13 09:43 | disposition home or self-care (01) ==
LOC: ANHSURGERY 09:33 → ANHOB2 14:52
PROVIDERS: PCP Physician Assistant; Visit Provider Obstetrics & Gynecology
PROC: (CPT 58571; principal; 2023-08-12 11:30)
DX: N92.0 Excessive and frequent menstruation with regular cycle (principal); R10.2 Pelvic and perineal pain; E03.9 Hypothyroidism, unspecified; M79.7 Fibromyalgia; F17.210 Nicotine dependence, cigarettes, uncomplicated
CPT/HCPCS: 58571; S2900; 88307; 99199; A9270; J0690; J1100; J1170; J1885; J2250; J2405; J2704; J3010; J7120

== ENCOUNTER 2023-09-24 15:47 | Outpatient (CLI) | payer OTHER, SELFPAY ==
--- NOTE | ~2023-09-24 | MM_ITS ---
EXAMINATION: MM screening alcon BI w giuliana HISTORY: Screening mammogram TECHNIQUE: Craniocaudal and mediolateral oblique 3-D tomosynthesis images were obtained and synthetic 2-D images were generated. CAD analysis was submitted and interpreted. COMPARISON: No prior mammogram is available for comparison at this institution. BREAST PARENCHYMAL COMPOSITION: There are scattered areas of fibroglandular density. FINDINGS: There is no evidence of suspicious mass, calcification, or architectural distortion to sugg est malignancy in either breast. There has been no suspicious interval change. IMPRESSION: 1. No mammographic evidence of malignancy. 2. Recommend routine screening mammography in one year. BI-RADS Category 1: Negative Reviewed, dictated and finalized at location A.
== END 2023-09-24 15:48 | disposition home or self-care (01) ==
PROVIDERS: PCP Physician Assistant; Visit Provider Nurse Practitioner Obstetrics & Gynecology
DX: Z12.31 Encounter for screening mammogram for malignant neoplasm of breast (principal)
CPT/HCPCS: 77063; 77067

== ENCOUNTER 2025-03-24 09:09 | Outpatient (CLI) | payer OTHER, SELFPAY ==
--- NOTE | ~2025-03-24 | MM_ITS ---
EXAMINATION: MM screening alcon BI w giuliana HISTORY: Screening TECHNIQUE: Craniocaudal and mediolateral oblique 3-D tomosynthesis images were obtained and synthetic 2-D images were generated. CAD analysis was submitted and interpreted. COMPARISON: 09/24/2023 BREAST PARENCHYMAL COMPOSITION: There are scattered areas of fibroglandular density. FINDINGS: There is no evidence of suspicious mass, calcification, or architectural distortion to suggest malignancy in either breast. IMPRESSION: 1. No mammographic evidence of malignancy. 2. Recommend routine screening mammography in one year. BI-RADS Category 1: Negative Reviewed, dictated and finalized at location B.
--- OUTSIDE RECORDS SUMMARY | 2025-03-24 09:30 | XMS_ITS | Clinical Summary ---
Author Organization [facility] [employer] Address [address] [place] [address] Care Team Providers Care Brim Blocker Name Role Phone Josephine Vela DO Primary Care Provide r Source Comments [facility] [employer],non-owned Affiliates and Associated Physician Practices is amultiple site organization consisting of ambulatory clinics and hospital sitesin [place], [place], [place] and [place]. This disclosure is being madepursuant to the Care Everywhere program and may not contain all information available regarding this patient. Last updated 18.[facility] [employer] Allergies Active Allergy Reactions Criticality Noted Date Comments Sulfa Drugs Urticaria 09/29/2008 Medications * Be aware that medications may not be up to date on this document. Alwaysverify current medications with the patient. Rbytoupx-Hpv-Br- FA ( VITAMIN WITH IRON) tablet Take 1 tablet by mouth once daily Active guaiFENesin ER 12hr (MUCINEX) 600 MG tablet Take 600 mg by mouth every 12 hours Active riboflavin 400 MG capsuleIndicatio ns:Other migraine without status migrainosus, not intractable Take 1 capsule by mouth once daily 30 capsule 3 07/24/2017 Active ferrous sulfate 325 (65 FE) MG tabletIndication s:Anemia affecting in third trimester (HCC) Take 1 tablet by mouth daily with food 30 tablet 3 07/24/2017 Active ascorbic acid (VITAMIN C) 500 MG tabletIndication s:Anemia affecting in third trimester (HCC) Take 1 tablet by mouth once daily 30 tablet 3 07/24/2017 Active ibuprofen (MOTRIN) 600 MG tablet Take 1 tablet by mouth every 6 hours as needed for Pain 60 tablet 2 08/02/2017 Active docusate sodium (COLACE) 100 MG capsule Take 1 capsule by mouth 2 times daily 60 capsule 2 08/02/2017 Active ferrous sulfate 325 (65 FE) MG tablet Take 1 tablet by mouth 2 times daily with morning and evening meal 60 tablet 2 08/02/2017 Active levothyroxine (SYNTHROID) 125 MCG tablet 11/04/2017 Active METHADONE HCL PO Act bobbi Active Problems Problem Noted Date Diagnosed Date Supervision of high risk in third trim jeaneth 07/31/2017 GBS (group B Streptococcus c arrier), +RV culture, currently 07/11/2017 Threatened labor 07/08/2017 Family history of other condition 2013 Hypothyroidism 09/29/2008 Migraine 09/29/2008 Screening for condition 09/29/2008 Overview (04/12/2015): Adult Abstraction Problem List Screening Pap Smear: Result: 12/2007 Mammogram: Result: Not avail in chart Hypertension affecting in third trimes ter 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 (F LUZONE; FLULAVAL; FLUARIX; AFLURIA QUADRIVALENT; 6MO+), 0.5 ML (IIV4) 07/09/2017 TETANUS 07/13/2005 Family History Medical History Relation Name Comments Asthma Father Hypercholesterolemia Father Kidney Disease Father Diabetes Maternal Grandfather Arthritis Maternal Grandmother Heart Disease Maternal Grandmother Thyroid Disease Maternal Grandmother Diabetes Sister Relation Name Status Comments Father Maternal Grandfather Maternal Grandmother Sister Social History Tobacco Use Types Packs/Day Years Used Date Smoking Tobacco: Every Day Cigarettes 0.5 10 Smokeless Tobacco: Never Tobacco Cessation:Ready to Q uit: No; Counseling Given: Yes Alcohol Use Standard Drinks/Week Comments No 0 (1 standard drink = 0.6 oz pur e alcohol) Comments No Sex and Gender Information Value Date Recorded Sex Assigned at Not on file Legal Sex Female 5:50 AM ENVIRONMENTAL COORDINATOR Gender Identity Not on file Sexual Orientation Not on file Last Filed Vital Signs Vital Sign Reading Time Taken Comments Blood Pressure 121/82 10/08/2017 11:20 AM CDT Pulse 83 10/08/2017 11:20 AM CDT Temperature 36.9 C (98.4 F) 08/02/2017 9:05 AM ENVIRONMENTAL COORDINATOR Respiratory Rate 18 08/02/2017 12:20 PM ENVIRONMENTAL COORDINATOR Oxygen Saturation 99% 08/02/2017 12:20 PM ENVIRONMENTAL COORDINATOR Inhaled Oxygen Concentration - - Weight 73 kg (161 lb) 10/08/2017 11:20 AM CDT Height 157.5 cm (5' 2) 07/31/2017 2:00 PM ENVIRONMENTAL COORDINATOR Body Mass Index 29.45 07/31/2017 2:00 PM ENVIRONMENTAL COORDINATOR Plan of Treatment Health Maintenance Due Date Last Done Comments COLOGUARD (AGES 45-75) - COL ON CA SCREENING 1973 COLON MONITORING 1973 COLONOSCOPY - COLON CA SCREENING 1973 CT COLONOGRAPHY - COLON CA SCREENING 1973 Colorectal Cancer Screening 1973 FIT - COLON CA SCREENING 1973 FLEX SIG - COLON CA SCREENING 1973 LIPID TESTING 1973 MAMMOGRAM 1973 HIV SCREENING 1988 HEPATITIS B VACCINE (1 of 3 - 19+ 3-dose series) 1992 PNEUMOCOCCAL VACCINE 50+ (1 of 2 - PCV) 1992 PAP SMEAR 1994 DTAP/TDAP/TD VACCINES (2 - T d or Tdap) 07/13/2015 07/13/2005 ZOSTER VACCINE (1 of 2) 12/27/2023 DEPRESSION SCREENING 07/13/2024 COVID-19 VACCINE (1 - 2023-2 5 season) 2025 INFLUENZA VACCINE (#1) 2025 07/09/2017 HEPATITIS C SCREENING Completed 07/08/2017 HIB VACCINE Aged Out No longer eligi ble based on patient's age to complete this topic HPV VACCINE Aged Out No longer eligi ble based on patient's age to complete this topic MENINGOCOCCAL (Group B) VACC INE SHARED DECISION-MAKING Aged Out No longer eligibl e based on patient's age to complete this topic MENINGOCOCCAL GROUPS A/C/Y/W VACCINE Aged Out No longer eligible b ased on patient's age to complete this topic Procedures Procedure Name Priority Date/Time Associated Diagnosis Comments CULTURE STREP B Routine 07/08/2017 2:35 AM ENVIRONMENTAL COORDINATOR Hypertension affecting in third trimester HEPATITIS C ANTIBODY Routine 07/08/2017 2:34 AM ENVIRONMENTAL COORDINATOR Hypertension affecting in third trimester GTT 1 HR (50G) GESTATIONAL SCREEN Routine 07/08/2017 2:34 AM ENVIRONMENTAL COORDINATOR Hypertension affecting in third trimester from Last 3 Months or Most Recently Relevant to Health Maintenance Results * (ABNORMAL) CULTURE STREP B (07/08/2017 2:35 AM ENVIRONMENTAL COORDINATOR) Culture Strep B Growth of Streptococcus agalactiae (Group B)(AA) NEFTALI 07/11/2017 11:05 AM ENVIRONMENTAL COORDINATOR [facility] Microbiology MISCELLANEOUS SAMPLES / Unknown Collection / Unknown 07/08/2017 2:35 AM ENVIRONMENTAL COORDINATOR 07/08/2017 2:53 AM ENVIRONMENTAL COORDINATOR Narrative [facility] - 07/11/2017 11:05 AM ENVIRONMENTAL COORDINATOR Susceptibility testing of penicillin, other beta-lactam antibiotics, and vancomycin is not necessary for beta-hemolytic streptococci groups A,B,C and G because resistant strains have not been recognized. Amy Rowe MD LAB - MICROBIOLOGY ORDERABLES Fi nal Result Performing Organization Address City/[facility]/ZIP Co de Phone Number [facility] [address] [phone] * GTT 1 HR (50G) GESTATIONAL SCREEN (07/08/2017 2:34 AM ENVIRONMENTAL COORDINATOR) Glucose Dose Gestational 50 gm 07/08/2017 3:16 AM ENVIRONMENTAL COORDINATOR [facility] Gestational Diabetes Screen 90 50-<140 mg/dL 07/08/2017 3:16 AM ENVIRONMENTAL COORDINATOR [facility] Blood BLOOD SPECIMEN / Unknown Venipuncture / Unknown 07/08/2017 2:34 AM ENVIRONMENTAL COORDINATOR 07/08/2017 2:55 AM ENVIRONMENTAL COORDINATOR Amy Rowe MD LAB - CHEMISTRY ORDERABLES Final Result [facility] [address] [place] [address] * HEPATITIS C ANTIBODY (07/08/2017 2:34 AM ENVIRONMENTAL COORDINATOR) HCV Antibody Screen Non Reactive Non Reactive 07/08/2017 4:08 AM ENVIRONMENTAL COORDINATOR [facility] HCV S/C Ratio 0.07 0.00 - 0.79 07/08/2017 4:08 AM ENVIRONMENTAL COORDINATOR [facility] Comment: Tqruiz-hb-kcpjbt ratio (S/CO) <0.80: Non Reactive Blood BLOOD SPECIMEN / Unknown Venipuncture / Unknown 07/08/2017 2:34 AM ENVIRONMENTAL COORDINATOR 07/08/2017 2:54 AM ENVIRONMENTAL COORDINATOR Narrative [facility] - 07/08/2017 4:08 AM ENVIRONMENTAL COORDINATOR Non Reactive - Antibodies to Hepatitis C virus (HCV) were not detected, result does not exclude early acute HCV infection. Amy Rowe MD LAB - CHEMISTRY ORDERABLES Final Result [facility] [address], [place] [id number] from Last 3 Months or Most Recently Relevant to Health Maintenance Insurance [facility] SELF PAY NO INSURANCE Member Subscriber Plan / Payer (Ef fective for All Dates) Name:Edmund Kwong Member ID:Not on file Relation to Subscriber:Not on file Name:EDMUND KWONG Subscriber ID:Not on file Address: [address] [place] [address] Payer ID:Not on file Group ID:Not on file Type:Self Pay Address: [place], [place] SELF PAY NO INSURANCE Member Subscriber Plan / Payer (Ef fective for All Dates) Name:KwongJovanyEdmund Member ID:Not on file Relation to Subscriber:Not on file Name:TIMAEDMUND Subscriber ID:Not on file Address: [address] [place] [address] Payer ID:Not on file Group ID:Not on file Type:Self Pay Address: [place], [place] [facility] SELF PAY NO INSURANCE Member Subscriber Plan / Payer (Ef fective for All Dates) Name:Edmund Kwong Member ID:Not on file Relation to Subscriber:Not on file Name:EDMUND KWONG Subscriber ID:Not on file Address: [address] [place], [place] [id number] Payer ID:Not on file Group ID:Not on file Type:Self Pay Address: [place], [place] Advance Directives * Full Code (Latest Code Status on File) Date Activated Date Inactivated Comments 07/31/2017 1:38 PM 08/02/2017 1:46 PM * Full Code Date Activated Date Inactivated Comments 07/31/2017 1:06 PM 07/31/2017 1:38 PM * Full Code Date Activated Date Inactivated Comments 07/08/2017 12:05 AM 07/09/2017 3:25 PM Care Teams Brim Blocker Relationship Specialty Start Date End Date Josephine Vela DO PCP - General Family Medicine 07/08/17
--- OUTSIDE RECORDS SUMMARY | 2025-03-24 09:30 | XMS_ITS | Clinical Summary ---
Author Organization [facility] Address [address] [place] [address] Phone Care Team Providers Care Death Surveys Coder Name Role Phone Donnell Rebolldeo Primary Care Provider [phone] Allergies Active Allergy Reactions Criticality Noted Date Comments Sulfa Antibiotics Hives 06/18/2017 Medications omeprazole (PRILOSEC) 20 MG CAPSULE DELAYED RELEASE Take 20 mg by mouth daily. Active METHADONE HCL PO Take 60 mg/day by mouth daily. Active albuterol 108 (90 Base) MCG/ACT Aerosol Solution 03/01/2019 Active Benzonatate 200 MG Capsule 03/01/2019 Active cetirizine (ZYRTEC) 10 MG Tablet 03/01/2019 Active fluticasone (FLONASE) 50 MCG/ACT Suspension 03/01/2019 Active gabapentin (NEURONTIN) 100 MG Capsule 03/23/2019 Active levothyroxine (SYNTHROID) 112 MCG Tablet Take 1 tablet by mouth once daily 90 Tab 1 10/24/2019 Active Active Problems Problem Noted Date Diagnosed Date Postoperative hypothyroidism 04/15/2019 Tobacco use 04/15/2019 Insomnia 04/15/2019 Family History Medical History Relation Name Comments Heart Disease Father Diabetes Sister Relation Name Status Comments Father Sister Social History Tobacco Use Types Packs/Day Years Used Date Smoking Tobacco: Every Day Cigarettes 1 32.7 Started: 07/07/1992 Smokeless Tobacco: Never Tobacco Cessation:Ready to Q uit: Not Asked; Counseling Given: Not Answered Alcohol Use Standard Drinks/Week Comments No 0 (1 standard drink = 0.6 oz pur e alcohol) Sexually Active Control Partners Comments Yes Male Comments No Sex and Gender Information Value Date Recorded Sex Assigned at Not on file Legal Sex Female 12:29 AM CDT Gender Identity Not on file Sexual Orientation Not on file Last Filed Vital Signs Vital Sign Reading Time Taken Comments Blood Pressure 108/68 04/15/2019 10:22 AM CDT Pulse 90 04/15/2019 10:22 AM CDT Temperature 36.3 C (97.3 F) 04/15/2019 10:22 AM CDT Respiratory Rate 16 04/15/2019 10:22 AM CDT Oxygen Saturation 97% 04/15/2019 10:22 AM CDT Inhaled Oxygen Concentration - - Weight 70.3 kg (155 lb) 04/15/2019 10:22 AM CDT Height 157.5 cm (5' 2) 04/15/2019 10:22 AM CDT Body Mass Index 28.35 04/15/2019 10:22 AM CDT Plan of Treatment Health Maintenance Due Date Last Done Comments Hepatitis C Virus (HCV) Screening 1973 Mammogram 1973 TdaP Immunization 1973 Hepatitis B Immunization (1 of 3 - 19+ 3-dose series) 1992 Pap Smear 1994 Cervical Cancer Screening (CCS) 12/27/2003 HPV/Cotest 12/27/2003 Cologuard 2018 Colonoscopy 2018 Colorectal Cancer Screening 2018 Immunochemical Fecal Occult Blood 2018 Lung Cancer Screening 12/27/2023 Zoster Immunization (2 of 2) 08/09/2024 06/14/2024 Influenza Immunization (#1) 2025 12/0 09/2023, 05/01/2023, 05/07/2022, Additional history exists SARS-COV-2 Immunization (2024- season) 2025 05/07/2022, 10/15/2020, 09/24/2020 Respiratory Syncytial Virus (RSV) Immunization (Adult) (1 - 1-dose 75+ series) 2048 Pneumococcal Immunization (50+ years) Completed 05/01/2023 Pneumococcal Immunization Combined Discontinued 05/01/2023 Human Papillomavirus (HPV) Immunization Aged Out No longer eligible based on patient's age to complete this topic Meningococcal Immunization (ACWY) Aged Out No longer eligible based on patient's age to complete this topic Rotavirus Immunization Aged Out No lo nger eligible based on patient's age to complete this topic Insurance [place]ICAID [id number] Care Teams Death Surveys Coder Relationship Specialty Start Date End Date Donnell Rebolledo, JEREMIAH [address] [place] [id number] PCP - General Physician Brass Reclaimer 04/15/19
--- OUTSIDE RECORDS SUMMARY | 2025-03-24 09:30 | XMS_ITS | Clinical Summary ---
Author Organization [facility] Address [address] [place] [address] Care Team Providers Care Hospice Spiritual Care Coordinator Name Role Phone Donnell Rebolledo Primary Care Provider [phone] Rashaun Power MD Unavailable [phone] Allergies Active Allergy Reactions Criticality Noted Date Comments Sulfa (Sulfonamide Antibiotics) Medications pregabalin (LYRICA) 200 mg capsule 0 03/30/2023 Active albuterol HFA (PROVENTIL HFA,VENTOLIN HFA,PROAIR HFA) 90 mcg/actuation inhaler 03/01/[address] (CYMBALTA) 60 mg capsule Take by mouth daily 03/29/2023 Active cetirizine (ZyrTEC) 10 mg tablet 03/01/2019 Active omeprazole (PriLOSEC) 20 mg capsule Take 1 capsule (20 mg total) by mouth daily Active Wisner Thyroid 90 mg tablet Take 1 tablet (90 mg total) by mouth daily 03/31/2023 Active semaglutide (Ozempic) 2 mg/dose (8 mg/3 mL) pen injector injection Inject 2 mg under the skin every 7 days Active cabergoline (DOSTINEX) 0.5 mg tabletIndicatio ns:hyperprolact inemia Take 0.5 tablets (0.25 mg total) by mouth 2 (two) times a week 4 tablet 3 07/23/2023 Active Active Problems Problem Noted Date Diagnosed Date Pituitary microadenoma 08/12/2023 Hypertension affecting in third trimes ter 04/08/2023 Late care affecting , antepartum, third trimester 04/08/2023 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 04/08/2023 Preeclampsia, third trimester 04/08/2023 Tobacco smoking affecting in third tri mester 04/08/2023 Hyperprolactinemia 04/08/2023 Assessment & Plan (04/08/2023 6:29 PM CDT): Update prolactin level If persistently elevated, will MRI pituitary Insomnia 04/15/2019 Postoperative hypothyroidism 04/15/2019 Assessment & Plan (04/08/2023 6:28 PM CDT): Was explained to the patient that the goal of treatment is to normalize TSH With the TFTs including TSH, free T4 and free T3 Will adjust dose of the Wisner thyroid as indicated Supervision of high risk in third trim jeaneth 07/31/2017 GBS (group B Streptococcus c arrier), +RV culture, currently 07/11/2017 Threatened labor 07/08/2017 Hypothyroidism 09/29/2008 Migraine 09/29/2008 Social History Tobacco Use Types Packs/Day Years Used Date Smoking Tobacco: Never Assessed Comments No Sex and Gender Information Value Date Recorded Sex Assigned at Not on file Legal Sex Female 5:23 PM ROUTE SALESMAN AND DRIVER Gender Identity Not on file Sexual Orientation Not on file Last Filed Vital Signs Vital Sign Reading Time Taken Comments Blood Pressure 100/66 04/08/2023 2:41 PM CDT Pulse 108 04/08/2023 2:41 PM CDT Temperature - - Respiratory Rate - - Oxygen Saturation - - Inhaled Oxygen Concentration - - Weight 70.3 kg (155 lb) 04/08/2023 2:41 PM CDT Height 157.5 cm (5' 2) 04/08/2023 2:41 PM CDT Body Mass Index 28.35 04/08/2023 2:41 PM CDT Plan of Treatment Health Maintenance Due Date Last Done Comments Breast Cancer Screening-Mammogram 1973 Cervical Cancer Screening 1973 Colon Cancer Screening-Colonoscopy 1973 Depression Screening 1973 DTaP/Tdap/Td Vaccine (1 - Tdap) 1984 Regular Well Visit/Exam 18-64 12/27/1991 Zoster Vaccine (1 of 2) 12/27/2023 Covid-19 Vaccine ( - 2024- season) 2025 05/07/2022, 10/15/2020, 09/24/2020 Influenza Vaccine (#1) 2025 2, 06/12/2020, 04/26/2019, Additional history exists Hepatitis B Screening Completed 11/13/2011 Hepatitis C Screening Completed 09/18/2016 Pneumococcal vaccine <65 Aged Out No longer eligible based on patient's age to complete this topic Procedures Procedure Name Priority Date/Time Associated Diagnosis Comments SERUM HEPATITIS C AB Routine 09/18/2016 9:47 AM ROUTE SALESMAN AND DRIVER from Last 3 Months or Most Recently Relevant to Health Maintenance Results * Serum Hepatitis C ab (09/18/2016 9:47 AM ROUTE SALESMAN AND DRIVER) HCV ab Nonreactive CDR HIST ORICAL RESULTS Serum 09/18/2016 9:47 AM ROUTE SALESMAN AND DRIVER Narrative CDR HISTORICAL RESULTS - 09/19/2016 3:53 AM ROUTE SALESMAN AND DRIVER Interpretive Data Positive results should be confirmed by a molecular method. If positive, a second separately collected sample should be submitted for Hepatitis C Virus (HCV) RNA Detection and Quantitation by Real-Time Reverse Sandblaster Supervisor-PCR (RT-PCR). Current interpretive data was last revised on 2016. Anibal Witt EMERGENCY REGISTRAR LAB BLOOD ORDERABLES Final Result CDR HISTORICAL RESULTS from Last 3 Months or Most Recently Relevant to Health Maintenance Insurance [facility] Care Teams Hospice Spiritual Care Coordinator Relationship Specialty Start Date End Date Donnell Rebolledo PA [address] [place] [address] PCP - General 09/18/16 Rashaun Power MD [address] [place] [address] Referring Physician Obstetrics and Gynecology 04/06/23
== END 2025-03-24 09:10 | disposition home or self-care (01) ==
LOC: ANHFOHIMG 09:11
PROVIDERS: PCP Physician Assistant; Visit Provider Nurse Practitioner Obstetrics & Gynecology
DX: Z12.31 Encounter for screening mammogram for malignant neoplasm of breast (principal)
CPT/HCPCS: 77063; 77067